=== PATIENT | male | born 1960 | race Caucasian/White ===

== ENCOUNTER 2017-06-29 22:18 | Emergency (ER) | payer OTHER ==
[2017-06-30] MEDS ORDERED: DEXAMETHASONE 10 MG/ML VIAL PO STA (00:33)
[2017-06-30] MEDS ORDERED: KETOROLAC 60 MG/2 ML VIAL IM STA (00:33)
[2017-06-30] MEDS ORDERED: CYCLOBENZAPRINE 10 MG TABLET PO STA (00:33)
--- NOTE | 2017-06-30 00:34 | ED Physician Documentation ---
PD HPI BACK INJURY - Stated complaint Stated Complaint: BACK PX - History obtained from History obtained from: Patient - History of Present Illness Location: Lower Type of injury: No: Fall, Laceration Where injury occurred: Street Timing - onset: How many hours ago (3) Timing - details: Abrupt onset Quality: Spasm, Similar to prior episodes Improved by: Immobilization Worsened by: Moving, Palpating Associated symptoms: No: Weakness, Numbness, Incontinent of urine, Unable to urinate, Hematuria, Incontinent of stool Contributing factors: No: Anticoagulated, Prior back surgery Similar symptoms before: Has not had sx before Recently seen: Not recently seen - Additional information Additional information: Patient is a 57 year old male presenting to the emergency department for low back pain. Patient states that he took his boat in town today to visit. Patient was leaning over when his back"went out". Patient states that this has happened to him a few times. Patient states that this has happened to him before. patient denies any trauma or neurological deficit. Review of Systems Constitutional: reports: Myalgias. denies: Fever, Chills, Fatigue Eyes: denies: Decreased vision, Photophobia Ears: reports: Reviewed and negative Nose: denies: Congestion, Epistaxis Throat: reports: Reviewed and negative Cardiac: denies: Chest pain / pressure, Palpitations Respiratory: denies: Cough, Wheezing GI: denies: Abdominal Pain, Nausea, Vomiting, Constipation, Diarrhea : denies: Dysuria, Frequency, Hesitancy, Unable to Void, Incontinent Skin: denies: Rash, Lesions Musculoskeletal: reports: Back pain Neurologic: denies: Generalized weakness, Focal weakness, Numbness, Difficulty speaking Immunocompromised: denies: Immunocompromised PD PAST MEDICAL HISTORY - Present Medications Home Medications: Ambulatory Orders Medication Instructions Recorded Confirmed Cyclobenzaprine [Flexeril] 10 mg PO TID PRN #10 tablet 06/30/17 - Allergies Allergies/Adverse Reactions: Allergies Allergy/AdvReac Type Severity Reaction Status Date / Time Iodinated Contrast- Oral and Allergy Edema Verified 06/29/17 22:30 IV Dye latex Allergy Hives Verified 06/29/17 22:30 PD ED PE NORMAL - Vitals Vital signs reviewed: Yes - General General: Alert and oriented X 3, Well developed/nourished - HEENT HEENT: Atraumatic, PERRL - Neck Neck: Supple, no meningeal sign, No JVD - Cardiac Cardiac: RRR, No murmur - Respiratory Respiratory: No respiratory distress - Abdomen Abdomen: Non distended - Derm Derm: Normal color, Warm and dry, No rash - Extremities Extremities: No deformity, No edema - Neuro Neuro: Alert and oriented X 3, No motor deficit, No sensory deficit, Normal speech - Psych Psych: Normal mood, Normal affect PD ED PE EXPANDED - General General: Alert, In Pain - Back Back: Soft tissue tenderness (low back tenderness and hypertonicity) Results - Vitals Vitals: Vital Signs - 24 hr 06/29/17 06/30/17 22:27 00:45 Temperature 35.8 C L Heart Rate 61 63 Respiratory 18 16 Rate Blood Pressure 138/87 H 135/78 H O2 Saturation 100 97 Oxygen O2 Source Room air PD MEDICAL DECISION MAKING - ED course Complexity details: re-evaluated patient, considered differential, d/w patient, d/w family ED course: Patient was seen and examined at bedside. patient's findings were consistent with muscle spasm. Patient had no signs of trauma or neurological deficit. Patient was treated with decadron, toradol and flexeril. patient required no further work up and was stable for discharge [facility] outpatient follow up. Departure - Departure Disposition: 01 Home, Self Care Clinical Impression: Back pain Condition: Good Instructions: ED Spasm Back No Trauma Follow-Up: CHEMA SNOW MD [Primary Care Provider] - Within 1 week Prescriptions: Cyclobenzaprine [Flexeril] 10 mg PO TID PRN #10 tablet PRN Reason: Spasms Comments: Your symptoms today are being caused by a muscle spasm. It is important to try to stay active. You can take motrin 600mg and tylenol 1000mg as needed for pain , and flexeril for spasm. You should alternate between ice and heat and make sure you stay well hydrated. It is also important that you stay active as sitting or lying for too long can exacerbate your symptoms. You should return to the emergency department for incontinence, focal weakness, new, worsening or uncontrollable symptoms. Discharge Date/Time: 06/30/17 00:45
[2017-06-30] MEDS ORDERED: CYCLOBENZAPRINE 10 MG TABLET PO ONE (00:50)
[2017-06-30] MEDS ORDERED: KETOROLAC 60 MG/2 ML VIAL ONE (00:51)
[2017-06-30] MEDS ORDERED: DEXAMETHASONE 10 MG/ML VIAL ONE (00:51)
[2017-06-30 01:54] VITALS: BP 135/78
== END 2017-06-30 00:45 | disposition home or self-care (01) ==
LOC: ED 22:18
DX: M54.5 Low back pain (principal); M62.830 Muscle spasm of back
CPT/HCPCS: 96372; 99283; A9270